=== PATIENT | male | born 1965 | race Caucasian/White ===

== ENCOUNTER 2016-09-25 22:30 | Inpatient (IN) | payer MEDICAID, MEDICARE ==
[~2016-09-25] VITALS: Ht 180.3 cm; Wt 123.4 kg
[2016-09-26] MEDS ORDERED: PROPARACAINE OPHTH 0.5%, 15ML EACHEYE ONE (00:30)
[2016-09-26 00:36] LABS: ASPARTATE AMINO TRANSFERASE 34 U/L (15-37); BLOOD UREA NITROGEN 28 mg/dL (7-18)
[2016-09-26 00:41] LABS: IS PT STATUS REG ER OR PRE ER? YES
[2016-09-26 03:44] VITALS: BP 146/87
[2016-09-26] MEDS ORDERED: GLUCAGON 1 MG IM PRN (04:00)
[2016-09-26] MEDS ORDERED: DEXTROSE 4 GM TAB.CHEW PO PRN (04:00)
[2016-09-26] MEDS ORDERED: DEXTROSE 50%, 50ML SYRINGE IVPush PRN (04:00)
[2016-09-26] MEDS: SODIUM CHLORIDE 0.9% 1,000 ML IV SCH ×2 (04:17→22:26)
[2016-09-26] MEDS ORDERED: ONDANSETRON 2MG/ML, 2ML IVPush PRN (04:30)
[2016-09-26] MEDS: INSULIN DETEMIR 100 UNITS/ML, PEN SQ-INSULIN SCH ×2 (04:30→16:30)
[2016-09-26] MEDS ORDERED: BISACODYL 10 MG SUPP PR PRN (04:30)
[2016-09-26] MEDS ORDERED: ENALAPRILAT 1.25 MG/ML, 2ML IVPush PRN (04:30)
[2016-09-26] MEDS ORDERED: LABETALOL 5MG/ML, 20ML IVPush PRN (04:30)
[2016-09-26] MEDS ORDERED: AMPICILLIN/SULBACTAM 3 GM in SODIUM CHLORIDE 0.9% 100 ML IV SCH (04:30)
[2016-09-26] MEDS ORDERED: PHARMACY MAY ADJ FOR RENAL FX MC PRN (04:30)
[2016-09-26] MEDS ORDERED: POLYETHYLENE GLYCOL 17 GM PACKET PO PRN (04:30)
[2016-09-26] MEDS ORDERED: PROMETHAZINE 25 MG/ML, 1ML IM PRN (04:30)
[2016-09-26] MEDS ORDERED: DOCUSATE 100 MG CAPSULE PO PRN (04:30)
[2016-09-26] MEDS: CEFTRIAXONE 1,000 MG in SODIUM CHLORIDE 0.9% 50 ML IV SCH (06:57)
[2016-09-26 07:07] VITALS: BP 136/78
[2016-09-26 07:18] LABS: BLOOD UREA NITROGEN 27 mg/dL (7-18)
[2016-09-26 07:24] LABS: IS PT STATUS REG ER OR PRE ER? NO
[2016-09-26] MEDS ORDERED: MAGNESIUM SULFATE PMX 2GM/50ML 50 ML IV ONE (10:00)
[2016-09-26] MEDS: POTASSIUM CHLORIDE 20 MEQ TAB.ER.PRT PO SCH ×3 (10:36→16:29)
[2016-09-26] MEDS: SODIUM CHLORIDE FLUSH 10ML SYR IVF SCH ×2 (10:38→22:27)
[2016-09-26] MEDS: INSULIN ASPART 100 UNITS/ML, PEN SQ-INSULIN SCH ×4 (10:38→22:33)
[2016-09-26 14:32] LABS: IS PT STATUS REG ER OR PRE ER? NO
[2016-09-26 15:22] VITALS: BP 127/76
[2016-09-26 20:04] VITALS: BP 116/60
[2016-09-26 20:34] LABS: PATH.CAST-FLAG NOT PRESENT; SPERM-FLAG NOT PRESENT; SRC-FLAG NOT PRESENT; XTAL-FLAG NOT PRESENT; YLC-FLAG NOT PRESENT
[2016-09-27 01:55] VITALS: BP 150/96
[2016-09-27] MEDS: CEFTRIAXONE 1,000 MG in SODIUM CHLORIDE 0.9% 50 ML IV SCH (04:41)
[2016-09-27 05:31] LABS: BLOOD UREA NITROGEN 22 mg/dL (7-18)
[2016-09-27 08:00] VITALS: BP 128/81
[2016-09-27] MEDS ORDERED: CALCIUM CARBONATE 500 MG TAB.CHEW PO PRN (08:30)
[2016-09-27] MEDS: INSULIN DETEMIR 100 UNITS/ML, PEN SQ-INSULIN SCH (08:40)
[2016-09-27] MEDS: SODIUM CHLORIDE 0.9% 1,000 ML IV SCH (08:41)
[2016-09-27] MEDS: SODIUM CHLORIDE FLUSH 10ML SYR IVF SCH (08:41)
[2016-09-27] MEDS: INSULIN ASPART 100 UNITS/ML, PEN SQ-INSULIN SCH (08:41)
[2016-09-27] MEDS ORDERED: ATOR20TA PO (08:58)
[2016-09-27] MEDS ORDERED: LISI-167 PO (08:58)
[2016-09-27] MEDS ORDERED: LEVO100T5 PO (08:58)
[2016-09-27] MEDS ORDERED: ASPI-515 PO (08:58)
[2016-09-27] MEDS ORDERED: METF500T4 PO (08:58)
[2016-09-27] MEDS ORDERED: METO25TA35 PO (08:58)
[2016-09-27] MEDS ORDERED: FAMOTIDINE 20 MG TABLET PO SCH (09:00)
[2016-09-27] MEDS ORDERED: SIMV20TA3 PO (10:42)
== END 2016-09-27 11:40 | disposition home or self-care (01) | DRG 280 ==
LOC: ED 23:58 → EDIP 09-26 02:13 → 5SO 09-26 03:14 → DCLOUNGE 09-27 10:25
PROVIDERS: ADMIT Internal Medicine; ATTEND Family Medicine
DX: I21.4 Non-ST elevation (NSTEMI) myocardial infarction (principal); N17.0 Acute kidney failure with tubular necrosis; E87.1 Hypo-osmolality and hyponatremia; L03.115 Cellulitis of right lower limb; E11.65 Type 2 diabetes mellitus with hyperglycemia; E03.9 Hypothyroidism, unspecified; E87.6 Hypokalemia; Z91.19 Patient's noncompliance with other medical treatment and regimen; H53.8 Other visual disturbances; Z88.6 Allergy status to analgesic agent; Z88.0 Allergy status to penicillin; Z88.2 Allergy status to sulfonamides; Z88.8 Allergy status to other drugs, medicaments and biological substances; D63.8 Anemia in other chronic diseases classified elsewhere; Z68.38 Body mass index [BMI] 38.0-38.9, adult; E66.01 Morbid (severe) obesity due to excess calories; F17.210 Nicotine dependence, cigarettes, uncomplicated
CPT/HCPCS: 36415; 70450; 71010; 80048; 80053; 81001; 82436; 82570; 82962; 83036; 83735; 84133; 84300; 84439; 84443; 84484; 85025; 93005; 93306; 93970; 99285; J0696; J1815; J3475; J7030